=== PATIENT | male | born 1980 ===

== ENCOUNTER 2018-12-05 08:38 | Day surgery (SDC) | payer OTHER ==
[2018-12-05] VITALS (8 sets, daily range): BP systolic 123–141; BP diastolic 73–87
[~2018-12-05] VITALS: Ht 172.7 cm; Wt 90.7 kg
[~2018-12-05 08:38] MED LIST: OXCA600T9 PO; SULI200T97 PO; TRIA10.8 NAS; cefazolin/dext.iso 2gm/100 ML IV ONE; famotidine 20mg tablet PO ONE; meperidine/PF 25mg/ml syringe IV PRN; morphine 4 MG/ML inj SYRINge IV PRN; ondansetron/PF 4mg/2ml inj IV PRN; proCHLORperazine 10 MG/2 ml inj IV PRN; ringers solution, lacted 1,000 ML IV SCH; vancomycin inj 1,500 MG in normal saline 300ml IV soln IV ONE
[2018-12-05] MEDS ORDERED: ondansetron/PF 4mg/2ml inj ONE (10:20)
[2018-12-05] MEDS ORDERED: sevoflurane 250ml liquid IH ONE (10:20)
[2018-12-05] MEDS ORDERED: dexamethasone sod phosphate 10mg/ml inj ONE (10:20)
[2018-12-05] MEDS ORDERED: MIDAZolam 5mg/5ml vial ONE (10:20)
[2018-12-05] MEDS ORDERED: fentaNYL/PF 50MCG/1 ML 2ML syringe ONE (10:20)
[2018-12-05] MEDS ORDERED: ROPIVAcaine 0.5% (5mg/ml) 30ml vial ONE (10:21)
[2018-12-05] MEDS ORDERED: propofol inj 20 ML IV ONE ×2 (10:42→12:39)
[2018-12-05] MEDS ORDERED: BUPIVAcaine/PF 2.5mg/ml (0.25%) 10ml vial ONE (11:21)
[2018-12-05] MEDS ORDERED: ceFAZolin 1000mg inj ONE (11:21)
[2018-12-05] MEDS ORDERED: fentaNYL /PF 50mcg/ml 5ml ampule ONE (11:24)
[2018-12-05] MEDS ORDERED: ketorolac trometh. 30mg/ml inj. ONE (12:41)
--- NOTE | 2018-12-05 12:57 | NUR ---
Received from OR via [facility], accompanied by Anesthesiologist DR DE LEON and report given by Anesthesiolgist. PT DROWSY, NO S/S OF DISTRESS/DISCOMFORT, VSS. RIGHT SHOULDER W/ISLAND DUANE CDI. Addendum: 12/05/18 at 1321 by Shanda Hughes RN Amended: Links added.
== END 2018-12-05 14:07 ==
LOC: PAS 08:38 → EEVIPCON 10:30 → PAS 14:07
PROVIDERS: ATTEND Orthopaedic Surgery
DX: S43.101A Unspecified dislocation of right acromioclavicular joint, initial encounter (principal); X58.XXXA Exposure to other specified factors, initial encounter; Y93.89 Activity, other specified; Y92.89 Other specified places as the place of occurrence of the external cause; Y99.8 Other external cause status; Z88.8 Allergy status to other drugs, medicaments and biological substances
CPT/HCPCS: 23120; 23550; 82948; C1713; J0690; J1100; J1885; J2250; J2405; J2704; J3010; J3370; J3490; J7120; L3650; A4565; A7000; J2795